=== PATIENT | female | born 1970 ===

== ENCOUNTER 2017-01-07 16:52 | Emergency (ER) | payer MEDICAID ==
[2017-01-07 16:52] VITALS: BMI 28.3
[2017-01-07 17:00] VITALS: RESP 20
[2017-01-07] MEDS ORDERED: Albuterol-Ipratrop 3 mg / 0.5 (3 ml) UD IH STA (17:53)
[2017-01-07] MEDS ORDERED: Albuterol-Ipratrop 3 mg / 0.5 (3 ml) UD ONE (18:19)
--- NOTE | 2017-01-07 19:19 | C.PDOC ---
Time Seen by Provider: 01/07/17 17:45 Chief Complaint (Nursing): Flu-like Symptoms History Per: Patient Onset/Duration Of Symptoms: Days (2) Current Symptoms Are (Timing): Still Present Associated Symptoms: Chills, Cough, Myalgias, Nasal Congestion, Nausea, Vomiting , Diarrhea Severity: Moderate Additional History Per: Prior Records Past Medical History Reviewed: Historical Data, Nursing Documentation, Vital Signs Vital Signs: Last Vital Signs Temp 99.7 F H 01/07/17 16:56 Pulse 115 H 01/07/17 16:56 Resp 20 01/07/17 16:56 BP 123/72 01/07/17 16:56 Pulse Ox 100 01/07/17 16:56 - Medical History PMH: Asthma, COPD, Gastritis, Hiatal Hernia - [facility] Procedures APPLICATION OF SPLINT (06/25/15) ESOPHAGOGASTRODUODENOSCOPY [EGD] W/CLOSED BIOPSY (06/16/13) Family History: States: Unknown Family Hx - Social History Hx Tobacco Use: Yes Hx Alcohol Use: No Hx Substance Use: No - Immunization History Hx Tetanus Toxoid Vaccination: Yes (2015) Hx Influenza Vaccination: Yes (2015) Hx Pneumococcal Vaccination: Yes (2015) Review Of Systems Except As Marked, All Systems Reviewed And Found Negative. Constitutional: Negative for: Fever Cardiovascular: Negative for: Chest Pain Respiratory: Positive for: Cough. Negative for: Shortness of Breath, Hemoptysis Musculoskeletal: Negative for: Neck Pain Skin: Negative for: Rash Neurological: Negative for: Weakness, Numbness, Seizures, Altered Mental Status Physical Exam - Physical Exam Appears: Non-toxic, No Acute Distress Skin: Normal Color, Warm, Dry, No Rash Head: Atraumatic, Normacephalic Eye(s): bilateral: PERRL, EOMI Neck: Normal ROM, Supple Cardiovascular: Rhythm Regular Respiratory: No Accessory Muscle Use, Wheezing (mild scattered, intermittent) Gastrointestinal/Abdominal: Soft, No Tenderness Back: No CVA Tenderness Extremity: Normal ROM Neurological/Psych: Oriented x3, Normal Motor, Normal Sensation ED Course And Treatment - Laboratory Results Interpretation Of Abnormal: Positive for Flu B O2 Sat by Pulse Oximetry: 100 Pulse Ox Interpretation: Normal - Radiology CXR: Interpreted by Me, Viewed By Me CXR Interpretation: Yes: No Acute Disease Progress Note: Lungs clear after one Duoneb Reassessment Condition: Improved Disposition Counseled Patient/Family Regarding: Studies Performed, Diagnosis, Need For Followup, Rx Given, Smoking Cessation - Disposition Disposition: HOME/ ROUTINE Disposition Time: 19:19 Condition: IMPROVED Additional Instructions: Drink plenty of fluids. Follow up with your doctor this week. Return to the ER if you develop high fever, not tolerating fluids, shortness of breath, worsening of symptoms or if you have any other concerns. Prescriptions: Oseltamivir [Tamiflu] 75 mg PO BID #10 cap Albuterol HFA [Ventolin HFA 90 mcg/actuation (8 g)] 2 puff IH Q4 PRN #1 unit PRN Reason: Wheezing Instructions: Influenza (ED) - Clinical Impression Clinical Impression: Influenza due to influenza virus, type B
[2017-01-07 19:45] VITALS: BP 114/71; PULSE 118; TEMP 98.2; O2SAT 98
--- NOTE | 2017-01-08 10:08 | RAD ---
HISTORY: Cough COMPARISON: Comparison is made to 09/06/2016 TECHNIQUE: Chest PA and lateral FINDINGS: LUNGS: There is heterogeneous opacity/infiltrate at the right lower lung may represent a pneumonia. Prominent lung markings are also noted. PLEURA: No significant pleural effusion identified. No pneumothorax apparent. CARDIOVASCULAR: Normal. OSSEOUS STRUCTURES: No significant abnormalities. VISUALIZED UPPER ABDOMEN: Normal. OTHER FINDINGS: None. IMPRESSION: New heterogeneous opacity/infiltrate at the right lower lung suspicious for pneumonia.
== END 2017-01-07 19:45 | disposition home or self-care (01) ==
LOC: C.ER 16:52
DX: J11.1 Influenza due to unidentified influenza virus with other respiratory manifestations (principal)

== ENCOUNTER 2017-03-17 04:56 | Emergency (ER) | payer MEDICAID ==
[2017-03-17 04:56] VITALS: BMI 26.2
[2017-03-17 05:24] VITALS: TEMP 98.2
[2017-03-17] MEDS ORDERED: Sodium Chloride 0.9% 1,000 ML IV ONE (06:22)
--- NOTE | 2017-03-17 06:25 | C.PDOC ---
Addendum entered and electronically signed by Tanya Gutierrez PA 03/18/17 15: 58: History Of Present Illness 46 yo female w/PMHx of gastric ulcer, asthma, smoker, come in for evaluation of epiastric pain gradually developed for past few hours " after being on constitution party and had some beer". Pt admits, pain is localized, aching associated with nausea. Admits, similar sx in past " after have beer". Pt also reports, some left arm pain", diffuse, intermittent, describes as " tightness" . Denies fever , chills, headache, dizziness, neck pain, CP, SOB, dyspnea, diaphoresis, palpitation, vomiting, hematemesis, back pain, diarrhea, UTI sx, denies weakness , sensory or vascular deficits to LUE. Ambulate to ED for evaluation, not in any apparent distress. Original Note: History Per: Patient Onset/Duration Of Symptoms: Gradual Current Symptoms Are (Timing): Still Present <Tanya Gutierrez - Last Filed: 03/17/17 06:21> <Suzan Child - Last Filed: 03/17/17 08:26> Time Seen by Provider: 03/17/17 06:00 Chief Complaint (Nursing): Abdominal Pain Past Medical History Reviewed: Historical Data, Nursing Documentation, Vital Signs - Medical History PMH: Asthma, Bronchitis, COPD, Gastritis, Hiatal Hernia Denies: Diabetes, Hepatitis, HIV, HTN, Chronic Kidney Disease, Seizures, Sexually Transmitted Disease Family History: States: No Known Family Hx - Social History Hx Tobacco Use: Yes Hx Alcohol Use: No Hx Substance Use: No - Immunization History Hx Tetanus Toxoid Vaccination: Yes (2016) Hx Influenza Vaccination: Yes (2016) Hx Pneumococcal Vaccination: Yes (2015) <Tanya Gutierrez - Last Filed: 03/17/17 06:21> Review Of Systems Except As Marked, All Systems Reviewed And Found Negative. Constitutional: Negative for: Fever, Chills Eyes: Negative for: Vision Change ENT: Negative for: Throat Pain Cardiovascular: Negative for: Chest Pain, Palpitations, Edema, Light Headedness Respiratory: Negative for: Cough, Shortness of Breath, Wheezing Gastrointestinal: Positive for: Nausea, Abdominal Pain. Negative for: Vomiting , Diarrhea, Melena, Hematochezia, Hematemesis Musculoskeletal: Positive for: Arm Pain. Negative for: Neck Pain, Back Pain Skin: Negative for: Rash, Bruising Neurological: Negative for: Weakness, Numbness, Altered Mental Status, Headache <Tanya Gutierrez - Last Filed: 03/17/17 06:21> Physical Exam - Physical Exam Appears: Well, Non-toxic, No Acute Distress Skin: Normal Color, Warm, Dry, No Rash, No Ecchymosis Eye(s): bilateral: PERRL Nose: No Flaring, No Discharge Oral Mucosa: Moist Throat: Normal, No Erythema, No Exudate, No Drooling Neck: Trachea Midline, Supple Cardiovascular: Rhythm Regular, No Friction Rub, No Murmur, No JVD Respiratory: No Decreased Breath Sounds, No Accessory Muscle Use, No Rales, No Rhonchi, No Stridor, No Wheezing Gastrointestinal/Abdominal: Soft, Tenderness (mild epigastric tenderness.), No Distention, No Guarding, No Rebound Back: No CVA Tenderness Extremity: No Pedal Edema, No Deformity, No Swelling Neurological/Psych: Oriented x3, Normal Speech <Tanya Gutierrez - Last Filed: 03/17/17 06:21> ED Course And Treatment O2 Sat by Pulse Oximetry: 99 Pulse Ox Interpretation: Normal Progress Note: Case discussed with LEONIDES Tyler and sign out: blood work, re- eavluation and dispo. <Tanya Gutierrez - Last Filed: 03/17/17 06:21> - Laboratory Results Result Diagrams: 03/17/17 06:49 03/17/17 06:49 <Suzan Child - Last Filed: 03/17/17 08:26> Medical Decision Making <Tanya Gutierrez - Last Filed: 03/17/17 06:21> <Suzan Child - Last Filed: 03/17/17 08:26> Medical Decision Makin:25 - On reeval, patient tolerating PO intake, ate a sandwich. Pain has resolved. (Suzan Child) Disposition <Tanya Gutierrez - Last Filed: 03/17/17 06:21> Counseled Patient/Family Regarding: Studies Performed, Diagnosis, Need For Followup - Disposition Disposition Time: 08:20 <Suzan Child - Last Filed: 06/11/17 08:26> - Disposition Referrals: Rossy,Radhames D, MD [Primary Care Provider] - Disposition: HOME/ ROUTINE Condition: STABLE Additional Instructions: FOLLOW UP WITH [facility] [facility] [employer]ATOR TOMORROW SCHEDULED. AVOID SPICY AND ACIDIC FOOD, ALCOHOL, CAFFEINE, TOMATO AND MINT. IF SYMPTOMS GET WORSE OR ANY NEW CONCERNING SYMPTOMS DEVELOP RETURN TO ED. Prescriptions: Famotidine [Pepcid] 20 mg PO BID #20 tab Instructions: Gastritis (ED) Forms: General Discharge Instructions - Clinical Impression Clinical Impression: Gastritis
[2017-03-17] MEDS ORDERED: Sodium Chloride 0.9% 1,000 ML ONE (06:34)
[2017-03-17 06:53] LABS: BASO # 0.1 K/uL (0.0-0.2); BASO % 1.3 % (0.0-2.0); EOS # 0.1 K/uL (0.0-0.7); EOS % 0.8 % (0.0-4.0); HEMATOCRIT 34.5 % (34.0-47.0); LYMPH # 2.4 K/uL (1.0-4.3); LYMPH % 21.4 % (20.0-40.0); MEAN CELL VOLUME 80.7 fL (81.0-99.0); MEAN CORPUSCULAR HEMOGLOBIN 25.9 pg (27.0-31.0); MEAN CORPUSCULAR HGB CONC 32.2 g/dL (33.0-37.0); MEAN PLATELET VOLUME 9.1 fL (7.2-11.7); RED CELL DISTRIBUTION WIDTH 16.6 % (11.5-14.5); WHITE BLOOD COUNT 11.3 K/uL (4.8-10.8)
[2017-03-17 07:04] LABS: CHLORIDE 110 mmol/L (98-107)
[2017-03-17 07:05] LABS: POTASSIUM 4.3 mmol/L (3.6-5.2); SODIUM 139 mmol/L (132-148)
[2017-03-17 07:07] LABS: AMYLASE 69 U/L (30-110); BILIRUBIN,TOTAL 0.4 mg/dL (0.2-1.3); CARBON DIOXIDE 22 mmol/L (22-30); GFR AFRICAN-AMERICAN > 60
[2017-03-17 07:08] LABS: ALKALINE PHOSPHATASE 54 U/L (38-126); ALT/SGPT 20 U/L (9-52); AST/SGOT 22 U/L (14-36); BLOOD UREA NITROGEN 13 mg/dL (7-17); CALCIUM 8.7 mg/dl (8.6-10.4); GLUCOSE,RANDOM 83 mg/dL (65-105)
[2017-03-17 07:24] VITALS: BP 111/60; PULSE 89; RESP 19; O2SAT 100
[2017-03-17 07:59] LABS: RBC URINE < 1 /hpf (0-3); URINE BILIRUBIN NEGATIVE (NEGATIVE); URINE BLOOD NEGATIVE (NEGATIVE); URINE COLOR Yellow (YELLOW); URINE GLUCOSE (UA) NORMAL (Normal); URINE KETONE NEGATIVE (NEGATIVE); URINE LEUKOCYTE ESTERASE NEG Leu/uL (Negative); URINE PROTEIN NEGATIVE (NEGATIVE); URINE UROBILINOGEN NORMAL mg/dL (0.2-1.0); WBC URINE 1 /hpf (0-5)
--- NOTE | 2017-03-18 18:32 | CARD ---
APPROVED REPORT EKG Measurement Heart [id number] [id number] <Conclusion> Normal sinus rhythm Normal ECG
== END 2017-03-17 08:33 | disposition home or self-care (01) ==
LOC: C.ER 04:56 → SUPCPDRO 04:56 → C.ER 08:33
DX: K29.70 Gastritis, unspecified, without bleeding (principal)
CPT/HCPCS: 80053; 81001; 82150; 84484; 84703; 85025; 85610; 85730; 93005; 96361; 96374; 96375; 99285; C9113; J2405; J7040

== ENCOUNTER 2017-04-11 20:39 | Emergency (ER) | payer MEDICAID ==
[2017-04-11 20:39] VITALS: BMI 26.2
== END 2017-04-11 21:30 | disposition left against medical advice (07) ==
LOC: C.ER 20:39
DX: R10.9 Unspecified abdominal pain (principal); Z02.9 Encounter for administrative examinations, unspecified